=== PATIENT | female | born 1960 | race Caucasian/White ===

== ENCOUNTER 2020-06-16 12:51 | Emergency (ER) | payer OTHER ==
[~2020-06-16] VITALS: Ht 152.4 cm; Wt 74.8 kg
[2020-06-16 13:01] VITALS: BP_SYST 147
[2020-06-16] MEDS ORDERED: KETOROLAC TROMETHAMINE 60 MG/2 ML VIAL IM ONE (13:15)
[2020-06-16 14:23] VITALS: BP_SYST 147
== END 2020-06-16 14:25 | disposition home or self-care (01) ==
LOC: SED 12:51
DX: S93.492A Sprain of other ligament of left ankle, initial encounter (principal); R03.0 Elevated blood-pressure reading, without diagnosis of hypertension; Z85.3 Personal history of malignant neoplasm of breast; W18.40XA Slipping, tripping and stumbling without falling, unspecified, initial encounter; Y93.89 Activity, other specified; Y92.89 Other specified places as the place of occurrence of the external cause; Y99.8 Other external cause status
CPT/HCPCS: 73610; 96372; 99283; J1885